=== PATIENT | male | born 1960 | race Native Hawaiian/Other Pacific Islander ===

== ENCOUNTER 2017-04-30 06:55 | Emergency (ER) | payer OTHER ==
[~2017-04-30] VITALS: Ht 185.4 cm; Wt 117.9 kg
[2017-04-30] MEDS ORDERED: ATEN50TA36 PO (07:13)
[2017-04-30] MEDS ORDERED: ZESTRIL40 MG OR (07:14)
[2017-04-30 07:26] LABS: PLATELET COUNT 412 K/uL (142-355)
[2017-04-30 07:31] LABS: SODIUM 131 mmol/L (136-145)
== END 2017-04-30 08:13 | disposition home or self-care (01) ==
LOC: ED 06:55
DX: F19.10 Other psychoactive substance abuse, uncomplicated (principal)
CPT/HCPCS: 36415; 80053; 80307; 80329; 81000; 85027; 93005; 99283; G0479

== ENCOUNTER 2020-03-27 17:31 | Outpatient (CLI) | payer OTHER ==
[~2020-03-27 17:31] MED LIST: ATEN50TA36 PO; ZESTRIL40 MG OR
== END 2020-03-27 19:45 | disposition home or self-care (01) ==
LOC: RAD 17:31
DX: M54.6 Pain in thoracic spine (principal); M54.5 Low back pain; M54.2 Cervicalgia

== ENCOUNTER 2021-04-06 14:00 | Outpatient (CLI) | payer OTHER | END 2021-04-06 23:03 | disposition home or self-care (01) | LOC: MRI 14:00 | PROVIDERS: ATTEND Registered Nurse | DX: M54.2 Cervicalgia (principal) ==

== ENCOUNTER 2021-05-09 14:18 | Emergency (ER) | payer OTHER | END 2021-05-09 16:01 | disposition home or self-care (01) | LOC: ED 14:18 | DX: M54.2 Cervicalgia (principal); M54.89 Other dorsalgia | CPT/HCPCS: 99281 ==

== ENCOUNTER 2022-05-09 08:08 | Outpatient (CLI) | payer OTHER ==
[~2022-05-09] VITALS: Ht 182.9 cm; Wt 128.8 kg
== END 2022-05-09 20:33 | disposition home or self-care (01) ==
LOC: NM 08:08
PROVIDERS: ATTEND Internal Medicine Cardiovascular Disease
DX: I10 Essential (primary) hypertension (principal); I20.0 Unstable angina; R09.89 Other specified symptoms and signs involving the circulatory and respiratory systems
CPT/HCPCS: A9500; J2785

== ENCOUNTER 2022-07-31 12:50 | Outpatient (CLI) | payer OTHER ==
[2022-07-31 13:54] LABS: POTASSIUM 4.1 mmol/L (3.6-5.2)
== END 2022-07-31 19:22 | disposition home or self-care (01) ==
LOC: LABW 12:50
PROVIDERS: ATTEND Nurse Practitioner Adult Health
DX: R00.2 Palpitations (principal)
CPT/HCPCS: 80048; 83880; 84436; 84443; 84479

== ENCOUNTER 2023-08-22 08:19 | Outpatient (CLI) | payer OTHER | END 2023-08-22 19:43 | disposition home or self-care (01) | LOC: US 08:19 | PROVIDERS: ATTEND Nurse Practitioner Family | DX: R10.11 Right upper quadrant pain (principal) ==